=== PATIENT | male | born 1995 | race Caucasian/White ===

== ENCOUNTER → 2017-01-25 | Outpatient (CLI) | payer OTHER ==
[2013-11-18 13:13] VITALS: BP 128/60
[~2017-01-25] MED LIST: AMLO10TA4 PO; GADOBUTROL 7.5 MMOL/7.5 ML VIAL INT ART ONE; IOHEXOL 300 MG/ML 10ML VIAL. INT ART ONE; LIDOCAINE 1% Multi-Dose 20 ML VIAL. ID ONE; LOSA1TAB18 PO
--- NOTE | 2017-01-25 16:53 | KCIC ---
PROCEDURE: Left shoulder injection using fluoroscopic guidance, prior to MR. HISTORY: Shoulder pain. Dislocation 1 week ago. Prior surgery. TECHNIQUE: The procedure was explained to the patient as were potential risks, including among others infection, bleeding or allergic reaction. All questions were answered. Informed written and verbal consent was obtained. The shoulder was prepped and draped in the usual sterile manner. Following administration of local anesthetic, a 22-gauge needle was advanced into the anterior shoulder. Following negative aspiration, 12 cc of a solution of 5cc Omnipaque-300 contrast, 5 cc 1% lidocaine, 10 cc normal saline, and 0.1 cc gadolinium was injected without difficulty. The needle was removed. There was good hemostasis at the injection site. The patient left in stable condition without immediate complication. The patient was given postprocedural instructions, and instructed to contact us or the ER if there are any complications. A single spot image is obtained. FLUOROSCOPY TIME:?35 seconds Electronically signed by: Holden Topete MD (01/25/2017 4:49 PM)
--- NOTE | 2017-01-25 17:15 | KCIC ---
MR arthrogram of the left shoulder Indication: Pain. Prior SLAP repair in 2012. Recent dislocation. COMPARISON: 09/18/2014. Technique: Intra-articular contrast injected into the glenohumeral joint and is reported separately. Routine 4 plane sequences were obtained, including ABER positioning. Findings: Acromioclavicular joint:Intact. Rotator cuff: No evidence of rotator cuff tear. No significant fluid or contrast accumulation in the subacromial subdeltoid bursa. Subdeltoid bursa: Trace fluid but no contrast accumulation. Articular cartilage: No acute cartilage defect or advanced DJD. Labrum: Signal identified within the superior labrum with some contrast accumulation appears similar to the prior study. No evidence of new labral tear since that time. Biceps tendon: Intact Bones: No lesion or acute fracture. Soft tissue: No acute soft tissue abnormality. No evidence of nerve entrapment or space-occupying lesion. Impression:Superior labral irregularity, compatible with an old tear or surgical change, is similar to the previous exam. No new labral tear or new internal derangement is identified. Electronically signed by: Holden Topete MD (01/25/2017 5:12 PM)
== END | disposition home or self-care (01) ==
LOC: KCIC 14:48
PROVIDERS: ATTEND Orthopaedic Surgery Sports Medicine
DX: M25.512 Pain in left shoulder (principal); Z98.890 Other specified postprocedural states
CPT/HCPCS: 73040; 73222; Q9967; A9585